=== PATIENT | female | born 1995 | race Caucasian/White ===

== ENCOUNTER 2017-12-26 00:20 | Inpatient (IN) | payer OTHER, BC ==
[2017-12-26 01:14] VITALS: BMI 27.6
[2017-12-26] MEDS ORDERED: Acetaminophen 500 MG TAB PO PRN (01:22)
[2017-12-26] MEDS ORDERED: NS / Oxytocin 40 units/1000ml 1,000 ML IV PRN (01:22)
[2017-12-26] MEDS ORDERED: Ondansetron HCl/PF 4 MG/2 ML Vial IVP PRN ×2 (01:22→03:02)
[2017-12-26] MEDS ORDERED: Lidocaine 1% (PF) 30 ML VIAL SC PRN (01:22)
[2017-12-26] MEDS ORDERED: Butorphanol Tartrate 1 MG/ML VIAL SLOW IVP PRN (01:22)
[2017-12-26] MEDS ORDERED: Methylergonovine 0.2 MG/ML VIAL IM PRN (01:22)
[2017-12-26] MEDS ORDERED: Promethazine HCl 25 MG/ML VIAL IM PRN ×2 (01:22→03:02)
[2017-12-26] MEDS ORDERED: Misoprostol 200 MCG TAB PR PRN (01:22)
[2017-12-26] MEDS ORDERED: Ibuprofen 800 MG TAB PO PRN (01:22)
[2017-12-26] MEDS ORDERED: NS w/ Oxytocin 10 units 500 ML IV SCH (01:30)
[2017-12-26 01:41] LABS: Hemoglobin 10.8 g/dL (12.0-16.0); Mean Corpuscular Hemoglobin 30.1 pg (27.0-31.0); Mean Corpuscular Volume 85.8 fL (78.0-98.0); Mean Platelet Volume 7.2 fL (7.4-10.4); Platelet Count 231 thou/uL (130-400); RBC Distribution Width 11.7 % (11.5-14.5); Red Blood Cell (RBC) Count 3.59 mill/uL (4.20-5.40); White Blood Cell (WBC) Count 10.5 thou/uL (4.8-10.8)
[2017-12-26] MEDS: Lactated Ringer's 1,000 ML IV SCH ×2 (01:43→02:24)
[2017-12-26] MEDS ORDERED: Bupivacaine 0.75% 13.4 ML, fentaNYL Citrate/PF 400 MCG in Sodium Chloride 0.9% 78.6 ML EPIDURAL SCH (02:00)
[2017-12-26] MEDS ORDERED: DISCONTINUE ALL PREVIOUS NARCOTICS FS SCH (02:00)
[2017-12-26 02:21] LABS: HBSAg Index 0.16 S/CO (0-0.99); Hep B Surf Ag Non-Reactive S/CO (NonReactive)
[2017-12-26] MEDS ORDERED: Fentanyl 100 MCG/2 ML VIAL ONE (02:31)
[2017-12-26] MEDS ORDERED: Lidocaine HCl/Epinephrine 5 ML AMPUL IJ ONE (02:31)
[2017-12-26] MEDS ORDERED: ePHEDrine/0.9% NaCl/PF SYRINGE 50 mg/10 ml SLOW IVP PRN (03:02)
[2017-12-26] MEDS ORDERED: Lactated Ringer's 500 ML IV PRN (03:02)
[2017-12-26] MEDS ORDERED: diphenhydrAMINE 50 MG/ML VIAL IVP PRN (03:02)
[2017-12-26] MEDS ORDERED: Acetaminophen 325 MG TAB PO PRN (03:02)
[2017-12-26] MEDS ORDERED: Eucerin (Mineral Oil/Petrolatum,White) 30 gm Jar TOP PRN (03:02)
[2017-12-26] MEDS ORDERED: Naloxone HCl 0.4 mg/ml Vial IVP PRN ×2 (03:02)
[2017-12-26] MEDS ORDERED: Communication Order-Pharmacy FS SCH (03:15)
[2017-12-26] MEDS ORDERED: fentaNYL Citrate/PF 400 MCG, Bupivacaine 0.5% 20 ML in Sodium Chloride 0.9% 72 ML EPIDURAL SCH (03:15)
[2017-12-26 05:10] LABS: Syphilis Antibody Nonreactive (Nonreactive); Syphilis Antibody Index 0.02 S/CO (<1.00 Non-Reactive)
[2017-12-26] MEDS ORDERED: Lidocaine 1% (PF) 30 ML VIAL ONE (06:52)
[2017-12-26] MEDS ORDERED: NS / Oxytocin 40 units/1000ml 1,000 ML IV SCH (07:45)
[2017-12-26] MEDS ORDERED: diphenhydrAMINE 25 MG CAP PO PRN (07:45)
[2017-12-26] MEDS ORDERED: traMADol HCl 50 MG TAB PO PRN (07:45)
[2017-12-26] MEDS ORDERED: Bisacodyl 10 MG SUPP PR PRN (07:45)
[2017-12-26] MEDS ORDERED: Adacel (T-DAP) 0.5 ML VIAL IM ONE (07:45)
[2017-12-26] MEDS ORDERED: Lanolin Ointment 7 GM TUBE TOP PRN (07:45)
[2017-12-26] MEDS ORDERED: Milk Of Magnesia 30 ML UDCUP PO PRN (07:45)
[2017-12-26] MEDS ORDERED: Benzocaine/Menthol 20-0.5% 60 ML CAN TOP PRN (07:45)
[2017-12-26] MEDS ORDERED: ePHEDrine/0.9% NaCl/PF SYRINGE 50 mg/10 ml ONE (15:02)
[2017-12-26] MEDS ORDERED: Heparin 10,000 UNITS/ 10 ML VIAL ONE (15:02)
[2017-12-26] MEDS ORDERED: Bupivacaine/Epinephrine 0.25% 30 ML VIAL ONE (15:02)
[2017-12-26] MEDS ORDERED: Lidocaine 2% MPF 10 ML AMP (For Epidural Use) ONE (15:02)
[2017-12-26] MEDS: Ibuprofen 800 MG TAB PO SCH ×2 (17:02→22:39)
[2017-12-26] MEDS: Docusate Calcium (SURFAK) 240 MG CAP PO SCH ×2 (17:02→22:39)
[2017-12-26] MEDS: Ferrous Sulfate 325 MG TAB PO SCH (17:02)
[2017-12-26] MEDS: Prenatal Vitamin 1 TAB PO SCH (17:02)
[2017-12-27] MEDS: Ibuprofen 800 MG TAB PO SCH (05:37)
--- NOTE | 2017-12-27 07:54 | DIS ---
DATE OF ADMISSION: 12/26/2017 DATE OF DISCHARGE: 12/27/2017 PRIMARY OB: Dr. Laura Correa. PROCEDURE: Normal term delivery. CONSULTATIONS: None. HOSPITAL COURSE: The patient is a 22-year-old G2, P1 female, who presented at 39 weeks in active lab or. She progressed to a term spontaneous vaginal delivery. weight was 3338 grams and Apgars w ere 9 and 9. Her hemoglobin at time of admission was 10.8, hematocrit 30.8, platelets 231,000. Phyllis ent reports that she is tolerating p.o., voiding on her own, having decreased lochia and good pain co ntrol. The patient has expressed interest in discharge home today. PHYSICAL EXAMINATION: VITAL SIGNS: This morning, blood pressure is 124/58, respiratory rate of 18, pulse is 60, temperatur e 98.8. GENERAL: She appears to be in no acute distress. She is alert, oriented, cooperative, and pleasant to interact with. HEENT: Head is normocephalic, atraumatic. ABDOMEN: Fundus is firm. EXTREMITIES: Nontender, nonedematous. The patient will be discharged to home. She has instructions to follow up with Dr. Correa in 6 weeks . She also has instructions to follow up sooner if she experiences fever, increasing pain, or bleedi ng. The patient is being discharged to home with ibuprofen [id number] to be taken as needed fo r pain control.
[2017-12-27] MEDS: Ferrous Sulfate 325 MG TAB PO SCH (08:21)
[2017-12-27] MEDS: Docusate Calcium (SURFAK) 240 MG CAP PO SCH (08:21)
[2017-12-27] MEDS: Prenatal Vitamin 1 TAB PO SCH (08:21)
[2017-12-27 09:08] VITALS: BP 135/71; TEMP 97.5
== END 2017-12-27 14:20 | disposition home or self-care (01) | DRG 775 ==
LOC: L&D 00:20 → 3SW 16:57
PROVIDERS: ADMIT Obstetrics & Gynecology; ATTEND Obstetrics & Gynecology
PROC: 10E0XZZ Delivery of Products of Conception, External Approach (ICD-10-PCS; principal; 2017-12-26)
DX: O80 Encounter for full-term uncomplicated delivery (principal); Z3A.39 39 weeks gestation of pregnancy; Z37.0 Single live birth
CPT/HCPCS: 85027; 86780; 86850; 86900; 86901; 87340; J0595; J1644; J2001; J3010; J3490; J7050